=== PATIENT | female | born 1940 | race Two or more races ===

== ENCOUNTER 2021-11-28 23:33 | Emergency (ER) | payer OTHER ==
[~2021-11-28] VITALS: Ht 170.2 cm; Wt 50.5 kg
[2021-11-28 23:45] VITALS: BP 153/101
[2021-11-28] MEDS ORDERED: ROCURONIUM BROMIDE 50 MG/5 ML IV ONE (23:45)
[2021-11-28] MEDS ORDERED: ETOMIDATE 2 MG/ML VIAL IV ONE (23:45)
[2021-11-28] MEDS ORDERED: CALCIUM CHLORIDE 1,000 MG/10 ML DISP.SYRIN IV ONE (23:45)
[2021-11-28] MEDS ORDERED: EPINEPHRINE (1:10,000) SYRINGE 1 MG/10 ML DISP.SYRIN IVP ONE (23:45)
[2021-11-28] MEDS ORDERED: SODIUM BICARBONATE SYR 50 MEQ/50 ML DISP.SYRIN IV ONE (23:45)
--- NOTE | 2021-11-28 23:45 | NUR ---
PT [id number] FROM [facility] C/O RESP DISTRESS SATTING IN THE 80'S ON R/A , NOW ON 15L NRB SATTING 100%. AMS NOTED. EMS REPORTED MICHAEL DVT; DISCOLORATION NOTED. RITCHIE MIDLINE #18G S/L; PATENT AND INTACT. DIVERSIFIED CROPS SUPERVISOR INDWELLING F/C PATENT AND INTACT. CONNECTED PT TO POX AND MONITOR. SAFETY MEASURES IN PLACE.
[2021-11-29] MEDS ORDERED: IPRATROPIUM NEB FS 0.5 MG/2.5 ML AMPUL.NEB NEB ONE
[2021-11-29] MEDS ORDERED: ALBUTEROL FS 2.5 MG/3 ML VIAL.NEB NEB ONE
--- NOTE | 2021-11-29 00:02 | NUR ---
RT AT PT'S BEDSIDE
--- NOTE | 2021-11-29 00:12 | NUR ---
CALLED FACILITY TO CONFIRM PT CODE STATUS. PER EMILE SPRING, PT IS FULL CODE.
--- NOTE | 2021-11-29 00:16 | NUR ---
COUPON MANIFEST CLERK AT PT'S BEDSIDE
[2021-11-29] MEDS ORDERED: IPRATROPIUM NEB FS 0.5 MG/2.5 ML AMPUL.NEB ONE (00:19)
[2021-11-29] MEDS ORDERED: ALBUTEROL FS 2.5 MG/3 ML VIAL.NEB ONE (00:19)
--- NOTE | 2021-11-29 00:29 | NUR ---
PHLEBOTIMIST AT PT'S BEDSIDE. URINE, COVID ANTIGEN AND COVID PCR COLLECTED AND GIVE TO DIGITAL STRATEGY SPECIALIST
--- NOTE | 2021-11-29 01:03 | NUR ---
Note joe in EDM - 11/29/21 at 0122 by NINI ABG RESULTED & RT NOTIFIED DR. MICHELLE ROBERTS. ORDERS TO TITRATE O2 TO 8LPM VIA SIMPLE MASK FROM 15LPM NRB. ORDERS CARRIED OUT & RT AWARE. WILL CONTINUE TO MONITOR.
[2021-11-29 01:20] LABS: BILIRUBIN,URINE NEGATIVE (NEGATIVE); COLOR,URINE YELLOW (YELLOW); LEUKOCYTE ESTERASE ,URINE NEGATIVE (NEGATIVE); NITRITE, URINE NEGATIVE (NEGATIVE); PROTEIN,URINE TRACE mg/dl (NEGATIVE); UGLUCOSE NEGATIVE (NEGATIVE); UROBILINOGEN,URINE 0.2 EU/dL (0.2)
--- NOTE | 2021-11-29 01:24 | NUR ---
CALLED PT DAUGHTER EDUARDO NO ANSWER X 3
--- NOTE | 2021-11-29 01:25 | NUR ---
CODE BLUE ACTIVATED
--- NOTE | 2021-11-29 01:33 | NUR ---
DR. MARTINEZ, RT, RN & EMT AT PT'S BEDSIDE. 0125 CODE BLUE - ACTIVATED & INITATED CPR, CONNECTED PT TO DEFIB PADS. 0125- EPI 1MG IVP GIVEN 0126- BICARB IVP GIVEN 0127- CALCIUM IVP GIVEN 0127- PULSE CHECK, NO PULSE 0128- BICARB IVP GIVEN 0129- EPI 1MG IVP GIVEN 0132- EPI 1 MG IVP GIVEN 0133- PULSE CHECK, ROSC ACHIEVED BP 95/20, HR 157 RT BAGGING PT
--- NOTE | 2021-11-29 01:58 | NUR ---
0146 - L FEMORAL PICCLINE ESTABLISHED BY DR. MARTINEZ. BLOOD COLLECTED AND SENT TO LAB. BP 186/77 HR 78 0156 - ETOMIDATE 30MG & ROCURONIUM 80MG IVP ADMINISTERED 0158 - INTUBATED - ETT 7.5 CM, 24 CM AT THE LIP. 0201 -BP 156/113 SPO2 88% ON BAGGING HR 84 RR 23
[2021-11-29] MEDS ORDERED: NOREPINEPHRINE 4 MG/4 ML AMPUL IV ONE (02:01)
--- NOTE | 2021-11-29 02:10 | NUR ---
ON PHONE WITH PT DAUGHTER EDUARDO
--- NOTE | 2021-11-29 02:11 | NUR ---
0202 - CODE BLUE ACTIVATED, NO PULSE FELT. DR. MARTINEZ, RT, RN, & EMT AT PT'S BEDSIDE. CPR INITIATIED. 0205 - EPI 1MG IVP GIVEN 0208 EPI 1MG IVP GIVEN 0209 - PULSE CHECK, - NO PULSE FELT 0210 - EPI 1MG IVP GIVEN 0211 - PULSE CHECK, NO PULSE FELT.
--- NOTE | 2021-11-29 02:12 | NUR ---
PT - DR. MARTINEZ AT PT'S BEDSIDE. PT PULSENESS, NO RESPIRATIONS OR CHEST RISE/FALL, SKIN COOL TO TOUCH, PUPILS FIXED.
--- NOTE | 2021-11-29 02:13 | NUR ---
ISAIAH ROBERTS ON PHONE WITH PT DAUGHTER EDUARDO
--- NOTE | 2021-11-29 02:16 | NUR ---
NOT A CORONERS CASE, MAY PROCEED WITH MORTUARY PROCEDURES PER TIFFANI.
[2021-11-29 02:17] LABS: RBC,URINE 0-2 /HPF (0-2)
[2021-11-29 02:18] LABS: BACTERIA,URINE None seen /HPF (None Seen); CALCIUM OXALATE CRYSTALS,UR Moderate /HPF (None Seen); SQUAMOUS EPITHELIAL CELL,UR Few /HPF (None Seen)
--- NOTE | 2021-11-29 02:18 | NUR ---
RT neb tx not finished due to pt coding at 0115. pt acheived rosc. intubated with ett size 7.5, 24@lip. bilateral chest rise, color change via co2 detector. ett patent and secure. pt coded second time.
--- NOTE | 2021-11-29 02:18 | NUR ---
PER [facility] NOT A CASE REF NUMBER [id number]
[2021-11-29 02:19] LABS: BASOPHILS % (AUTO) 0.3 % (0.0-2.0); EOSINOPHILS % (AUTO) 0.1 % (0.0-6.0); HEMATOCRIT 24 % (33-45); HEMOGLOBIN 7.6 g/dL (11.5-14.8); LYMPHOCYTES # (AUTO) 1.9 K/uL (0.8-4.8); LYMPHOCYTES % (AUTO) 18.9 % (20.0-44.0); MEAN CORPUSCULAR HGB CONC 31 g/dl (31.0-36.0); MEAN CORPUSCULAR VOLUME 100 fL (82-100); MONOCYTES # (AUTO) 0.3 K/uL (0.1-1.30); MONOCYTES % (AUTO) 3.1 % (2.0-12.0); NEUTROPHILS % (AUTO) 77.6 % (43.0-81.0); PLATELET COUNT (AUTO) 141 K/uL (150-450); RED BLOOD CELL COUNT(AUTO) 2.42 MIL/uL (4.0-5.2); WHITE BLOOD COUNT (AUTO) 10.3 K/uL (4.3-11.0)
--- NOTE | 2021-11-29 02:51 | NUR ---
DR SRINIVAS BOB [phone], PAGED FOR NOTIFICATION OF .
--- NOTE | 2021-11-29 02:52 | NUR ---
[facility] CALLED AND NOTIFIED OF PATIENT . SPOKE WITH CLEMENTINE BAPTISTE
--- NOTE | 2021-11-29 03:20 | NUR ---
FAMILY AT BEDSIDE
[2021-11-29 03:57] LABS: ABG BASE EXCESS -12.3 mmol/L; ABG PCO2 18.9 mmHg (35.0-45.0); ABG PO2 130.5 mmHg (75.0-100.0); COHb 0.2 % (0.5-1.5); MetHb 0.1 % (0.0-1.5); O2Hb 97.6 % (94.0-97.0); SITE, ABG Right Brachial; VENT MODE, BG 15 L NRB
[2021-11-29 04:48] LABS: CARBON DIOXIDE 18 mmol/L (21-32); CHLORIDE 103 mmol/L (98-107); CREATININE 1.4 mg/dL (0.6-1.3); GLUCOSE 282 mg/dL (74-106); SODIUM SERUM 146 mmol/L (136-145); UREA NITROGEN, BLOOD 36 mg/dL (7-18)
--- NOTE | 2021-11-29 05:05 | NUR ---
PATIENT TRANSFERRED TO [facility]
[2021-11-29 05:22] LABS: ALANINE AMINOTRANSFERASE 491 U/L (12-78); ALBUMIN 1.7 g/dL (3.4-5.0); ALKALINE PHOSPHATASE 75 U/L (46-116); ASPARTATE AMINOTRANSFERASE 1101 U/L (15-37); BILIRUBIN,DIRECT 0.1 mg/dL (0.0-0.2); BILIRUBIN,TOTAL 0.4 mg/dL (0.2-1.0); TOTAL PROTEIN, SERUM 4.3 g/dL (6.4-8.2)
[2021-11-29 06:41] LABS: BAND % (MANUAL) 4 % (0.0-5.0); LYMPHOCYTES % (MANUAL) 23 % (16-48); MONOCYTES % (MANUAL) 3 % (0-11.0); NEUTROPHILS % (MANUAL) 70 (42-76)
== END 2021-11-29 05:15 ==
LOC: ER 23:44
DX: J96.91 Respiratory failure, unspecified with hypoxia (principal); E87.2 Acidosis; K92.2 Gastrointestinal hemorrhage, unspecified; I46.9 Cardiac arrest, cause unspecified; Z20.822 Contact with and (suspected) exposure to COVID-19; U09.9 Post COVID-19 condition, unspecified; R00.0 Tachycardia, unspecified; J47.9 Bronchiectasis, uncomplicated; Z88.0 Allergy status to penicillin; I10 Essential (primary) hypertension; K21.9 Gastro-esophageal reflux disease without esophagitis; E11.9 Type 2 diabetes mellitus without complications; J90 Pleural effusion, not elsewhere classified; J96.11 Chronic respiratory failure with hypoxia
CPT/HCPCS: 31500; 36415; 36569; 36600; 71045; 80048; 80076; 81001; 83880; 84145; 84484; 85007; 85025; 86850; 87086; 87426; 92950 ×2; 93005; 94640; 99291; C9803; J0171; J3490 ×3; J7030; J7050; U0003